=== PATIENT | female | born 1990 | race Caucasian/White ===

== ENCOUNTER 2022-05-19 14:46 | Outpatient (CLI) | payer OTHER, SELFPAY ==
--- NOTE | 2022-05-19 15:00 | CRLHL7_ITS ---
For Patients: As a result of the Cures Act, medical imaging exams and procedure reports are released immediately into your electronic medical record. You may view this report before your referring provider. If you have questions, please contact your health care provider. INDICATION: Twin . TECHNIQUE: Ultrasound OB pelvis transabdominal. Real-time hamlin-scale imaging of the fetus was performed as well as color Doppler and spectral Doppler analysis of the umbilical artery. COMPARISON: None. FINDINGS: Sonographic imaging demonstrates a twin intrauterine gestation. Fetus A: Regular cardiac rate of 145 beats per minute. Fetus has a breech orientation. The placenta lies maternal right without evidence of placenta previa. Amniotic fluid volume appears normal with the deepest pocket of 7 cm. The composite ultrasound gestational age is calculated at 24 weeks 5 days with an estimated sonographic due date of September 03, 2022. The weight is estimated at 724 gm, 85th percentile. The following biometric measurements were obtained: Biparietal diameter: 25 weeks 0 days Head circumference: 24 weeks 5 days Abdominal circumference: 25 weeks 0 days Femur length: 24 weeks 2 days Fetus B: Regular cardiac rate of 155 beats per minute. Fetus has a cephalic orientation. The placenta lies anterior without evidence of placenta previa. Amniotic fluid volume appears normal with the deepest pocket of 5 cm. The composite ultrasound gestational age is calculated at 24 weeks 6 days with an estimated sonographic due date of September 02, 2022. The weight is estimated at 745 gm, 90th percentile. The following biometric measurements were obtained: Biparietal diameter: 24 weeks 4 days Head circumference: 25 weeks 0 days Abdominal circumference: 25 weeks 2 days Femur length: 24 weeks 2 days IMPRESSION: 1. Viable twin intrauterine . 2. No abnormalities evident. Dictated by Srinivas Iverson MD @ 05/19/2022 5:59:52 PM (Electronically Signed)
== END 2022-05-19 14:47 | disposition home or self-care (01) ==
LOC: US 14:49
PROVIDERS: PCP Family Medicine; Visit Provider Obstetrics & Gynecology
DX: O30.002 Twin pregnancy, unspecified number of placenta and unspecified number of amniotic sacs, second trimester (principal); Z3A.24 24 weeks gestation of pregnancy
CPT/HCPCS: 76816

== ENCOUNTER 2022-05-30 09:52 | Outpatient (CLI) | payer OTHER, SELFPAY ==
--- NOTE | 2022-05-30 10:15 | CRLHL7_ITS ---
For Patients: As a result of the Century Cures Act, medical imaging exams and procedure reports are released immediately into your electronic medical record. You may view this report before your referring provider. If you have questions, please contact your health care provider. INDICATION: DI/DI TWIN GESTATION. CERVICAL LENGTH CHECK COMPARISON: 8 TECHNIQUE: Real-time grayscale imaging of the twins was performed. Transabdominal and transvaginal approach utilized. FINDINGS: Sonographic imaging demonstrates a living twin intrauterine gestation. Twin A demonstrates a regular cardiac rate of 147 beats per minute. Twin A has a vertex position. The placenta lies right anterior. Amniotic fluid volume appears normal and the largest fluid pocket measures 5.1 cm. Twin B demonstrates a regular cardiac rate of 150 beats per minute. Twin B has a vertex position. The placenta lies anterior. Amniotic fluid volume appears normal and the largest fluid pocket measures 4.7 cm. With transvaginal imaging, the cervix measures 1.8 cm and there is cervical funneling present measuring 1.6 cm. IMPRESSION: Cervical shortening measuring 1.8 cm with associated funneling measuring 1.6 cm. Dictated by Florian Whaley MD @ 05/30/2022 11:26:52 AM (Electronically Signed)
== END 2022-05-30 09:53 | disposition home or self-care (01) ==
LOC: US 09:53
PROVIDERS: PCP Family Medicine; Visit Provider Obstetrics & Gynecology
DX: O30.049 Twin pregnancy, dichorionic/diamniotic, unspecified trimester (principal)
CPT/HCPCS: 76815; 76817

== ENCOUNTER 2022-06-04 11:12 | Outpatient (CLI) | payer OTHER, SELFPAY ==
[2022-06-04 12:06] LABS: Fetal Fibronectin* Negative (Negative)
== END 2022-06-04 11:13 | disposition home or self-care (01) ==
LOC: NFLDREF 11:14
PROVIDERS: PCP Family Medicine; Visit Provider Obstetrics & Gynecology
DX: O30.042 Twin pregnancy, dichorionic/diamniotic, second trimester (principal); Z3A.26 26 weeks gestation of pregnancy; O34.32 Maternal care for cervical incompetence, second trimester
CPT/HCPCS: 84112

== ENCOUNTER 2022-06-18 09:34 | Outpatient (CLI) | payer OTHER, SELFPAY ==
--- NOTE | 2022-06-18 09:45 | CRLHL7_ITS ---
For Patients: As a result of the Century Cures Act, medical imaging exams and procedure reports are released immediately into your electronic medical record. You may view this report before your referring provider. If you have questions, please contact your health care provider. 3rd TRIMESTER TWIN GROWTH INDICATION: Third trimester scan, evaluate growth in a twin gestation. COMPARISON: 05/30/2022, 05/19/2022 TECHNIQUE: Real-time grayscale imaging of the twins was performed. FINDINGS: Sonographic imaging demonstrates a living twin intrauterine gestation. Twin A demonstrates a regular cardiac rate of 144 beats per minute. Twin A has a vertex position. The placenta lies right anterior. Amniotic fluid volume appears normal and the largest fluid pocket measures 4.2 cm. The estimated weight is 1215 gm which lies at the 51st percentile. The BPD greater than 97th percentile. HC 48th percentile. AC 41st percentile. FL 45th percentile. The HC/AC ratio measures 1.12 range (0.99-1.21). Twin B demonstrates a regular cardiac rate of 146 beats per minute. Twin B has a vertex position. The placenta lies anterior. Amniotic fluid volume appears normal and the largest fluid pocket measures 6.3 cm. The estimated weight is 1392 gm which lies at the 88th percentile. BPD 19th percentile. HC 26th percentile. Abdominal circumference 96th percentile. FL 56th percentile. The HC/AC ratio measures 0.99 range (1.00-1.21). IMPRESSION: With transvaginal measurement, the cervix is shortened and measures 1.6-1.7 cm. Funneling of the internal cervical os is also present measuring 8 millimeters. TWIN A: Sonographic gestational age 29 weeks 0 days and sonographic due date 09/03/2022. Sonographic age is 1 week ahead of the clinical age. Estimated weight 51st percentile. Abdominal circumference 41st percentile. BPD greater than 97th percentile. TWIN B: Sonographic gestational age 28 weeks 5 days and sonographic due date of 09/05/2022. Sonographic age is 5 days ahead of the clinical age. Estimated weight 88th percentile. Abdominal circumference 96th percentile. Dictated by Florian Whaley MD @ 06/18/2022 11:28:03 AM (Electronically Signed)
== END 2022-06-18 09:35 | disposition home or self-care (01) ==
LOC: US 09:35
PROVIDERS: PCP Family Medicine; Visit Provider Obstetrics & Gynecology
DX: O30.043 Twin pregnancy, dichorionic/diamniotic, third trimester (principal); Z3A.29 29 weeks gestation of pregnancy
CPT/HCPCS: 76816; 76817

== ENCOUNTER 2022-06-18 16:04 | Outpatient (CLI) | payer OTHER, SELFPAY ==
[2022-06-18 11:26] LABS: Alanine Aminotransferase* 16 U/L (4-35); Aspartate Amino Transferase* 36 U/L (12-35)
[2022-06-18 12:09] LABS: TSH With Reflex to FT4* < 0.015 uIU/mL (0.270-4.200)
[2022-06-18 13:33] LABS: Free T4 Free Thyroxine* 1.45 ng/dL (0.70-1.85)
[2022-06-19 17:20] LABS: Rapid Plasma Reagin (RPR) Non Reactive (Non Reactive)
== END 2022-06-18 16:05 | disposition home or self-care (01) ==
PROVIDERS: PCP Family Medicine; Visit Provider Obstetrics & Gynecology
DX: O30.043 Twin pregnancy, dichorionic/diamniotic, third trimester (principal); Z3A.28 28 weeks gestation of pregnancy
CPT/HCPCS: 84439; 84443; 84450; 84460; 86592

== ENCOUNTER 2022-06-19 11:25 | Outpatient (CLI) | payer OTHER, SELFPAY ==
[2022-06-19 12:24] LABS: Fetal Fibronectin* POSITIVE (Negative)
== END 2022-06-19 11:26 | disposition home or self-care (01) ==
LOC: NFLDREF 11:39
PROVIDERS: PCP Family Medicine; Visit Provider Obstetrics & Gynecology
DX: O30.043 Twin pregnancy, dichorionic/diamniotic, third trimester (principal); O47.00 False labor before 37 completed weeks of gestation, unspecified trimester; Z3A.28 28 weeks gestation of pregnancy
CPT/HCPCS: 84112

== ENCOUNTER 2022-06-25 07:06 | Outpatient (CLI) | payer OTHER, SELFPAY ==
--- NOTE | 2022-06-25 07:15 | CRLHL7_ITS ---
For Patients: As a result of the Century Cures Act, medical imaging exams and procedure reports are released immediately into your electronic medical record. You may view this report before your referring provider. If you have questions, please contact your health care provider. INDICATION: FALSE LABOR BEFORE 37 WKS COMPARISON: 06/18/2022 TECHNIQUE: Real time hamlin scale imaging of the twins was performed. FINDINGS: Sonographic imaging demonstrates a twin living intrauterine gestation. TWIN A: Fetus demonstrates a regular cardiac rate of 157 beats per minute. Fetus has a maternal right vertex position. The placenta lies right anterior. Amniotic fluid volume appears normal and there is a single deepest vertical pocket: 3.4 cm. Normal gross body movements, tone and respiratory activity. TWIN B: Fetus demonstrates a regular cardiac rate 147 beats per minute. Fetus has a maternal left vertex position. The placenta lies right anterior. Amniotic fluid appears normal and there is a single deepest pocket of 5.7 cm. Normal gross body movements and tone. Absent respiratory activity. IMPRESSION: TWIN A: Normal biophysical profile 8. TWIN B: Biophysical profile 6/8. Absent respiratory activity. Dictated by Florian Whaley MD @ 06/25/2022 10:41:49 AM (Electronically Signed)
== END 2022-06-25 07:07 | disposition home or self-care (01) ==
LOC: US 07:06
PROVIDERS: PCP Family Medicine; Visit Provider Obstetrics & Gynecology
DX: O30.043 Twin pregnancy, dichorionic/diamniotic, third trimester (principal); O47.00 False labor before 37 completed weeks of gestation, unspecified trimester; Z3A.29 29 weeks gestation of pregnancy
CPT/HCPCS: 76819; 84112

== ENCOUNTER 2022-07-03 07:19 | Outpatient (CLI) | payer OTHER, SELFPAY ==
--- NOTE | 2022-07-03 07:15 | CRLHL7_ITS ---
For Patients: As a result of the Century Cures Act, medical imaging exams and procedure reports are released immediately into your electronic medical record. You may view this report before your referring provider. If you have questions, please contact your health care provider. INDICATION: TWINS, FALSE LABOR BEFORE 37 WEEKS COMPARISON: 06/25/2022 TECHNIQUE: Real time hamlin scale imaging of the fetus was performed. Without non-stress testing. FINDINGS: Sonographic imaging demonstrates a twin living intrauterine gestation. TWIN A: Fetus demonstrates a regular cardiac rate of 131 beats per minute. Fetus has a maternal right vertex position. The amniotic fluid volume appears normal and there is a single deepest pocket measurement of 5.2 cm. The fetus was active and demonstrated normal breathing movements. There was normal flexion and extension of the trunk and extremities. TWIN B: Fetus demonstrates a regular cardiac rate of 139 beats per minute. Fetus has a maternal left vertex position. The amniotic fluid volume appears normal and there is a single deepest pocket measurement of 5.6 cm. The fetus was active without normal breathing movements. There was normal flexion and extension of the trunk and extremities. IMPRESSION: TWIN A: Normal biophysical profile score of 8 out of 8. TWIN B: Biophysical profile 6/8 without normal breathing movements. Dictated by Florian Whaley MD @ 07/03/2022 10:37:30 AM (Electronically Signed)
== END 2022-07-03 07:20 | disposition home or self-care (01) ==
PROVIDERS: PCP Family Medicine; Visit Provider Obstetrics & Gynecology
DX: O47.00 False labor before 37 completed weeks of gestation, unspecified trimester (principal); O30.049 Twin pregnancy, dichorionic/diamniotic, unspecified trimester
CPT/HCPCS: 76819

== ENCOUNTER 2022-07-10 07:06 | Outpatient (CLI) | payer OTHER, SELFPAY ==
--- NOTE | 2022-07-10 07:15 | CRLHL7_ITS ---
For Patients: As a result of the Century Cures Act, medical imaging exams and procedure reports are released immediately into your electronic medical record. You may view this report before your referring provider. If you have questions, please contact your health care provider. INDICATION: FALSE LABOR BEFORE 37 WEEKS COMPARISON: 07/03/2022 TECHNIQUE: Real time hamlin scale imaging of the twins was performed. Without non-stress testing. FINDINGS: Sonographic imaging demonstrates a twin living intrauterine gestation. TWIN A: Fetus demonstrates a regular cardiac rate of 152 beats per minute. Fetus has a right vertex position. The amniotic fluid volume appears normal and there is a single deepest pocket measurement of 2.9 cm. The fetus was active and demonstrated normal breathing movements. There was normal flexion and extension of the trunk and extremities. TWIN B: Fetus demonstrates a regular cardiac rate of 143 beats per minute. Fetus has a left vertex position. The amniotic fluid volume appears normal and there is a single deepest pocket measurement of 4.0 cm. The fetus was active and demonstrated normal breathing movements. There was normal flexion and extension of the trunk and extremities. IMPRESSION: TWIN A: Normal biophysical profile score of 8 out of 8. TWIN B: Normal biophysical profile score of 8 out of 8. Dictated by Florian Whaley MD @ 07/10/2022 11:56:02 AM (Electronically Signed)
== END 2022-07-10 07:07 | disposition home or self-care (01) ==
PROVIDERS: PCP Family Medicine; Visit Provider Obstetrics & Gynecology
DX: O47.03 False labor before 37 completed weeks of gestation, third trimester (principal); O30.043 Twin pregnancy, dichorionic/diamniotic, third trimester; Z3A.31 31 weeks gestation of pregnancy
CPT/HCPCS: 76819

== ENCOUNTER 2022-07-14 14:06 | Inpatient (IN) | payer OTHER, SELFPAY ==
[2022-07-14] VITALS (43 sets, daily range): BP systolic 110–176; BP diastolic 56–96; PULSE 87–109; RESP 16–18; TEMP 36.5–36.9; O2SAT 97–100
--- NOTE | 2022-07-14 | CRLHL7_ITS ---
For Patients: As a result of the Century Cures Act, medical imaging exams and procedure reports are released immediately into your electronic medical record. You may view this report before your referring provider. If you have questions, please contact your health care provider. INDICATION: Emergent , no towel counts. COMPARISON: None. TECHNIQUE: Abdomen 2 view. FINDINGS: Suboptimal radiographic technique limits evaluation. The upper abdomen and lateral aspect of the left abdomen are not included in the field of view. Large rectangular opacity projected over the right lateral abdomen/pelvis is likely external to the patient. Catheter over the mid abdomen. No radiopaque foreign body identified. No dilated bowel loops are seen. The bones are unremarkable. IMPRESSION: No radiopaque foreign body identified. Dictated by Iona Salazar MD @ 07/14/2022 4:01:12 PM (Electronically Signed)
[2022-07-14 11:27] LABS: Basophils Absolute Auto 0.05 K/uL (0.00-0.30); Basophils Percent Auto 0.6 % (0.0-3.0); Eosinophils Percent Auto 1.2 % (0.0-7.0); Hemoglobin* 10.3 gm/dL (12.0-16.0); Immature Granulocytes Abs Auto 0.02 K/uL (0.00-0.30); Lymphocytes Percent Auto 11.7 % (20-44); Mean Corpuscular HGB Conc 33 gm/dL (32-36); Mean Corpuscular Hemoglobin 28 pg (26-34); Mean Corpuscular Volume 85 fL (80-100); Monocytes Percent Auto 9.9 % (0.0-11.0); Neutrophils Percent Auto 76.4 % (42.0-72.0); Platelet Count* 262 K/uL (140-440); Red Blood Count 3.66 m/uL (4.00-5.20); White Blood Count* 8.62 K/uL (4.50-11.00)
[2022-07-14 11:36] LABS: Slide Review Reflex No
[2022-07-14] MEDS: LACTATED RINGERS 1000 ML 1,000 ML IV (12:28)
--- NOTE | 2022-07-14 12:37 | PM.OBHPAP1 ---
OB - H&P; HPI Antepartum History of Present Illness Chief complaint: Maternity Narrative: Fatmata Carmona is a 32 year old female Meds Home Medications and Allergies Home Medications Medication Instructions Recorded Confirmed Type PNV no.151-iron 27 mg-folic 800 cap PO 04/25/22 07/10/22 History mcg-omega3 260 yg-tae-hls-fish capsule ( Multi-DHA (with vitamin K)) aspirin 81 mg tablet,delayed mg PO DAILY 04/25/22 07/10/22 History release fluoxetine 40 mg capsule 40 mg PO DAILY 04/25/22 07/10/22 History loratadine 10 mg tablet 10 mg PO DAILY 04/25/22 07/10/22 History omeprazole 20 mg capsule,delayed 20 mg PO QDAY 07/10/22 07/10/22 History release Allergies Allergy/AdvReac Type Severity Reaction Status Date / Time Penicillin Allergy Mild Rash Uncoded 07/10/22 08:16 Sulfa Antibiotics Allergy Mild Rash and Uncoded 07/10/22 08:16 diarrhea as baby OB - H&P: Exam Physical Exam: Vital signs: Temp Pulse Resp BP Pulse Ox 98.4 F 87 18 139/91 H 98 07/14/22 11:05 07/14/22 12:09 07/14/22 11:05 07/14/22 12:09 07/14/22 11:55 OB - Results Labs Labs: Short CBC 07/14/22 Range/Units 11:20 WBC 8.62 (4.50-11.00) K/uL Hgb 10.3 L (12.0-16.0) gm/dL Hct 31.0 L (33.0-51.0) % Plt Count 262 (140-440) K/uL
[2022-07-14] MEDS: BETAMETHASONE SOD PHOS/ACETATE 6 MG/ML ML 12 MG IM (12:56)
--- NOTE | 2022-07-14 12:56 | P.OBHP_ITS ---
OB - H&P; HPI Antepartum History of Present Illness Time Seen by Provider: 13:17 Date Seen: 07/14/22 Chief complaint: Maternity Narrative: Fatmata Carmona is a 32 year old female at 31w5d here for scant vaginal bleeding and contractions. She denies any trauma or intercourse. She's been on pelvic rest since first trimester. Denies LOF, malodorous vaginal discharge, or increased vaginal bleeding. Denies fever, chills, SOB, JORGENSEN, visual changes, RUQ pain or rapidly increasing edema. She was negative ROMx4 on evaluation. She continues to have increased contractions: initially Q15-30 minutes and now Q5 minutes. She endorses increased in contraction strenght as well. Review of Systems Narrative: REVIEW OF SYSTEMS: GENERAL: Negative SKIN: Negative NECK: Negative RESPIRATORY: Negative BREAST: Negative CARDIOVASCULAR: Negative GASTROINTESTINAL: Negative GENITOURINARY: +scant vagina bleeding, +ctx MUSCULOSKELETAL: Negative NEUROLOGICAL: Negative PSYCHIATRIC: Negative ENDOCRINE: Negative HEMATOLOGIC: Negative Meds Home Medications and Allergies Home Medications Medication Instructions Recorded Confirmed Type PNV no.151-iron 27 mg-folic 800 cap PO 04/25/22 07/10/22 History mcg-omega3 260 cw-zgp-tkq-fish capsule ( Multi-DHA (with vitamin K)) aspirin 81 mg tablet,delayed mg PO DAILY 04/25/22 07/10/22 History release fluoxetine 40 mg capsule 40 mg PO DAILY 04/25/22 07/10/22 History loratadine 10 mg tablet 10 mg PO DAILY 04/25/22 07/10/22 History omeprazole 20 mg capsule,delayed 20 mg PO QDAY 07/10/22 07/10/22 History release Allergies Allergy/AdvReac Type Severity Reaction Status Date / Time Penicillin Allergy Mild Rash Uncoded 07/10/22 08:16 Sulfa Antibiotics Allergy Mild Rash and Uncoded 07/10/22 08:16 diarrhea as baby OB - H&P: Exam Physical Exam: Vital signs: Temp Pulse Resp BP Pulse Ox 98.4 F 87 18 139/91 H 100 07/14/22 11:05 07/14/22 12:09 07/14/22 11:05 07/14/22 12:09 07/14/22 12:52 Narrative: Physical exam: General: No acute distress Psych: Alert and oriented x3, full affect HEENT: Normocephalic, atraumatic, Heart: Regular rate and rhythm, no murmur rub or gallop Lungs: Clear to auscultation bilaterally Abdomen: Gravid. Soft, no tenderness, rebound, or guarding, no masses, no hepatosplenomegaly, no hernias Lower extremities: 2+ edema bilaterally Pelvic exam: Mons normal, clitoris normal, urethral meatus normal. Labia minora and majora normal in appearance bilaterally. Perineum and anus normal appearance. Vaginal introitus normal appearance. Vagina pink and well rugated with scant white discharge. Negative cought test, negative pool, negative ferning Cervix visually dilated. SVE /ball --> /ball. OB - Results Labs Labs: Short CBC 07/14/22 Range/Units 11:20 WBC 8.62 (4.50-11.00) K/uL Hgb 10.3 L (12.0-16.0) gm/dL Hct 31.0 L (33.0-51.0) % Plt Count 262 (140-440) K/uL OB - A/P Antepartum Assessment and Plan (1) labor: Status: Acute Plan labor - Pt in labor with aminata twins - Scant vaginal bleeding from cervical change. No active bleeding - Rescue BMZ#1 administered - Mag sulfate for neuroprotection - 4 grams loading dose Plan: Reached out to [facility] and they were unable to accept her as their NICU is closed today. Transfer to [facility]- accepted. Report given. well being Fetus A - upon arrival, tachy to 180s with moderate variability and intermittent d/c --. LR bolus given and NST became reactive and reassuring with HR in 150s - Vertex on BSUS Fetus B - Reactive and reassuring in 140s - Vertex on BSUS Pt stable and appropriate for transfer.
[2022-07-14] MEDS: fentaNYL 100 MCG/2 ML inj 25 MCG IVP (13:48)
[2022-07-14 14:12] LABS: Amnisure Rom* POSITIVE
[2022-07-14] MEDS: ROPIVACAINE 0.2% 100 ml 100 ML 12 MG EPIDURAL (14:35)
[2022-07-14 14:40] LABS: Albumin* 3.4 g/dL (3.3-5.0); Chloride* 108 mmol/L (96-114); Sodium* 134 mmol/L (135-149)
[2022-07-14 14:41] LABS: INR 0.85 (0.91-1.10); Prothrombin Time 12.1 Seconds
[2022-07-14 14:42] LABS: Creatinine* 0.5 mg/dL (0.5-1.5); Estimated Glomerular Filt Rate 129 ml/min; Fibrinogen* 587 mg/dL (200-450); Partial Thromboplastin Time* 25 Seconds (23-33)
[2022-07-14 14:43] LABS: Alanine Aminotransferase* 30 U/L (4-35); Alkaline Phosphatase* 200 U/L (40-150); Aspartate Amino Transferase* 32 U/L (12-35); Bilirubin Total* 0.4 mg/dL (0.1-1.5); Blood Urea Nitrogen* 4 mg/dL (5-24); Carbon Dioxide* 12 mmol/L (20-32); Glucose* 104 mg/dL (60-115); Total Protein* 6.4 g/dL (6.0-8.3)
[2022-07-14 14:44] LABS: Calcium* 8.8 mg/dL (8.4-10.6)
[2022-07-14 14:50] LABS: Potassium* 2.6 mmol/L (3.6-5.1)
--- NOTE | 2022-07-14 14:59 | PM.ANBPRC ---
[facility] Medical History (Updated 07/14/22 @ 13:29 by Linda Gramajo MD) Dichorionic diamniotic twin gestation History of abnormal cervical Papanicolaou smear (2013) History of migraine History of pre-eclampsia Pain in symphysis pubis during Family History (Updated 05/19/22 @ 16:45 by Shannon Hernandez MD) Father High blood pressure Mother Hypothyroidism Heart disease Maternal Grandfather Hypothyroidism Maternal Grandmother Hypothyroidism Aunt Hypothyroidism Paternal Grandfather Heart disease High blood pressure Maternal Grandmother Parkinson disease Social History (Updated 05/19/22 @ 16:46 by Shannon Hernandez MD) 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[employer], non-smoker, no EtOH Lives with , Mark, son and step son Highest level of school completed/degree received: Bachelor's degree Smoking Status: Never smoker Meds Home Medications and Allergies Home Medications Medication Instructions Recorded Confirmed Type PNV no.151-iron 27 mg-folic 800 cap PO 04/25/22 07/10/22 History mcg-omega3 260 vp-nvw-mrp-fish capsule ( Multi-DHA (with vitamin K)) aspirin 81 mg tablet,delayed mg PO DAILY 04/25/22 07/10/22 History release fluoxetine 40 mg capsule 40 mg PO DAILY 04/25/22 07/10/22 History loratadine 10 mg tablet 10 mg PO DAILY 04/25/22 07/10/22 History omeprazole 20 mg capsule,delayed 20 mg PO QDAY 07/10/22 07/10/22 History release Allergies Allergy/AdvReac Type Severity Reaction Status Date / Time Penicillin Allergy Mild Rash Uncoded 07/10/22 08:16 Sulfa Antibiotics Allergy Mild Rash and Uncoded 07/10/22 08:16 diarrhea as baby Results Labs Labs: Laboratory Results - last 24 hr 07/14/22 07/14/22 07/14/22 11:20 11:34 14:18 WBC 8.62 RBC 3.66 L Hgb 10.3 L Hct 31.0 L MCV 85 MCH 28 MCHC 33 RDW Coeff of Michael 16.0 H Plt Count 262 Neut % (Auto) 76.4 H Lymph % (Auto) 11.7 L [place] % (Auto) 9.9 Eos % (Auto) 1.2 Baso % (Auto) 0.6 Neut # (Auto) 6.60 Lymph # (Auto) 1.00 [place] # (Auto) 0.90 Eos # (Auto) 0.10 Baso # (Auto) 0.05 Abs Immat Gran (auto) 0.02 INR 0.85 L APTT 25 Fibrinogen 587 H Sodium Potassium Chloride Carbon Dioxide BUN Creatinine Estimated GFR Glucose Calcium Total Bilirubin AST ALT Alkaline Phosphatase Total Protein Albumin Membrane Rupture POSITIVE 07/14/22 14:18 WBC RBC Hgb Hct MCV MCH MCHC RDW Coeff of Michael Plt Count Neut % (Auto) Lymph % (Auto) [place] % (Auto) Eos % (Auto) Baso % (Auto) Neut # (Auto) Lymph # (Auto) [place] # (Auto) Eos # (Auto) Baso # (Auto) Abs Immat Gran (auto) INR APTT Fibrinogen Sodium 134 L Potassium 2.6 L* Chloride 108 Carbon Dioxide 12 L BUN 4 L Creatinine 0.5 Estimated GFR 129 Glucose 104 Calcium 8.8 Total Bilirubin 0.4 AST 32 ALT 30 Alkaline Phosphatase 200 H Total Protein 6.4 Albumin 3.4 Membrane Rupture Vital Signs Vital Signs: Last Vital Signs Temp 98.4 F 07/14/22 11:05 Pulse 87 07/14/22 12:09 Resp 18 07/14/22 11:05 BP 139/91 H 07/14/22 12:09 Pulse Ox 99 07/14/22 13:22 Anesthesia Procedures Epidural Insertion Patient Location: OR Start Time: 14:00 Start Date: 07/14/22 Reason for Block: procedure for pain Patient Position: sitting Performed By: Jp Benavidez Preanesthetic Checklist: IV checked, risks and benefits discussed, monitors and equipment checked, pre-op evaluation and anesthesia consent Prep: chlorhexidine gluconate Monitoring: blood pressure monitoring, continuous pulse oximetry and heart rate Approach: midline Vertebral Space: lumbar (1-5) Epidural Technique: ESTELLA saline Needle Type: Tuohy needle Injection Technique: continuous catheter Needle gauge: 17 Needle Length (cm): 10 cm Needle Insertion Depth (cm): 7 Catheter Gauge: 19 Catheter Type: multi-orifice Catheter at skin depth (cm): 4 Test Dose Result: negative and lidocaine 1.5% with epinephrine 1 to 200,000
[2022-07-14 15:10] LABS: SARS PCR* Negative SARS-CoV-2 (Negative)
[2022-07-14 15:21] LABS: Albumin* 3.4 g/dL (3.3-5.0)
[2022-07-14 15:24] LABS: Alanine Aminotransferase* 28 U/L (4-35); Alkaline Phosphatase* 190 U/L (40-150); Aspartate Amino Transferase* 33 U/L (12-35); Bilirubin Direct* 0.3 mg/dL (0.0-0.5); Bilirubin Total* 0.4 mg/dL (0.1-1.5); Total Protein* 6.4 g/dL (6.0-8.3)
--- NOTE | 2022-07-14 15:32 | PM.OBPRCCS ---
Procedure Pre-op/Post-op diagnoses: Pre-Op/Post-Op Diagnoses Operation Date: 07/14/22 14:15 <No data on this case meets the specified criteria> Procedure Done: Global Procedure Details: Procedures Operation Date: 07/14/22 14:15 Actual Procedure Side Surgeon p Section Twins Linda Gramajo MD Expanded Function Dental Assistant: Missy Mendez Estimated blood loss (mL): 341 Anesthesia type: Spinal Complications: Preoperative diagnosis: 1. 32-year-old 3 para 1011 at and 31w5d admitted for a labor. 2. Emergency section due to deceleration of fetus B Patient was about to be transferred but became extremely uncomfortable due to increasing contractions. She was checked and noted to be 8/90/-1. Decision was made to go to the OR for delivery. Her labor progress rapidly and she was complete on arrival to OR. After spinal was placed, Fetus B noted to have prolonged deceleration to 80s for 5 minutes. Discussed with patient that we need to do an emergency c/s. Risks/benefits and alternative were discussed and verbal consent obtained. Patient verbalized understand and desires to proceed with emergency c/s. Postoperative diagnosis: Same Procedure: Primary low-transverse section. Anesthesia: Spinal Surgeon: Linda Gramajo MD Expanded Function Dental Assistant: Missy Mendez MD Estimated blood loss: 341 mL Specimen: Placenta x2 to pathology Findings: Two live male infants was delivered from the cephalic position x 2 at 1454 and 1455. Apgars for fetus A 3 at 1 min and 6 at 5 min respectively. Infant weight: 3lb 15oz. Nuchal cord(s): No. Apgars for fetus B at 4 at 1 min and 6 at 5 min. The placentas were delivered spontaneouslyx2. Amniotic fluidx2: Clear. Normal uterus, fallopian tubes and ovaries were noted. Procedure: Fatmata was taken to the OR where spinal anesthetic was found be adequate. A Minor catheter was placed. The patient was then placed in the dorsal supine position with a leftward tilt. She was then prepped with iodine per emergency protocol. A Pfannenstiel skin incision was made and carried through sharply to the underlying layer of fascia. Fascia was incised in the midline and this incision carried laterally bluntly with digits. The rectus muscles were in the midline. The peritoneum was entered bluntly. This opening was extended bluntly. A bladder blade retractor was placed. A bladder flap was not created. Uterus was incised in a low transverse manner in the midline. This incision carried laterally with blunt pressure on the inferior and superior aspects of the uterine incision. The amniotic sac was ruptured after fetus A head was move towards hysterotomy. The 's head and body was delivered atraumatically. The same steps were repeated for fetus B. Head and body were delivered atraumatically. The infants were shown to the patient and her support person, then handed to waiting pediatric staff. The placentas was delivered spontaneously. The uterus was cleared of clots and debris. The uterine incision was reapproximated with the uterus in vivo. The 1st layer using 0-Vicryl in a running, locked manner. The 2nd layer using 0-Vicryl in a running, vertical, imbricating layer by Dr. Missy Mendez. Additional sutures needed for hemostasis: no. Excellent hemostasis was verified. The rectus muscles were then closely inspected to verify hemostasis. Hemostasis was obtained with bipolar cautery. The fascia was then reapproximated using 0-Vicryl in a running manner. The subcutaneous tissue was then irrigated with saline and hemostasis obtained with bipolar cautery. The subcutaneous tissue was reapproximated using 3-0 chromic gut in a running manner. The skin was reapproximated using 3-0 Monocryl in a running subcuticular manner. LiquiBan skin adhesive and a Methalex silver dressing were applied. The patient tolerated this procedure well. Sponge, lap and instrument counts were correct x2 active to the procedure. Patient was taken to the recovery area in stable condition. OB Delivery Proc Additional Procedures Tubal Ligation at the time of : No Other: No
--- NOTE | 2022-07-14 15:58 | P.NB_ITS ---
Nerve Block Nerve Block Time Seen by Provider: 15:30 Type of block requested by surgeon for post-operative analgesia: TAP Side: bilateral Time out performed: Yes Verification of patient name: Yes Verification of date of : Yes Site marking: site marked Name of person performing procedure: Cholo Continuous monitoring Was continuous monitoring of O2 sat, B/P, awake overnight monitor, recorded every 15 minutes?: Yes Procedure Checklist: sterile prep, needles and gloves Ultrasound guided. Images saved: Yes Medications given in 5ml increments after negative aspiration: Marcaine %: 0.25 mL: 30 Needle gauge: 20 and Exparel mL: 10 Patient tolerated procedure well: Yes Additional comments: Needle noted adjacent to nerve Block Charges Block Charge (with Pro Fee): TAP Bilateral Use of Ultrasound Machine for Block: Yes- US Guidance/pain block
--- NOTE | 2022-07-14 16:03 | W.ANESCHARGE ---
Anesthesia Charges Start Date/Time Anesthesia Start Date: 07/14/22 Anesthesia Start Time: 14:40 Stop Date/Time Anesthesia Stop Date: 07/14/22 Anesthesia Stop Time: 15:19 Summary Emergency: Yes
--- NOTE | 2022-07-14 16:07 | W.ANESCHARGE ---
Anesthesia Charges Start Date/Time Anesthesia Start Date: 07/14/22 Anesthesia Start Time: 14:40 Stop Date/Time Anesthesia Stop Date: 07/14/22 Anesthesia Stop Time: 15:19 Summary Emergency: Yes
[2022-07-14] MEDS: ACETAMINOPHEN 500 MG TABLET 1000 MG PO (16:57)
[2022-07-14 17:21] LABS: Blood Urea Nitrogen* 3 mg/dL (5-24); Creatinine* 0.6 mg/dL (0.5-1.5); Estimated Glomerular Filt Rate 123 ml/min
[2022-07-14] MEDS: OXYTOCIN 30 unit/500 ML in NS 30 UNIT/500 ML BAG 300 UNIT IVPB (18:27)
[2022-07-14] MEDS: miSOPROStoL 800 MCG/4 TABLET PR (18:29)
--- NOTE | 2022-07-14 18:31 | PM.OBPRCCS ---
Procedure Pre-op/Post-op diagnoses: Pre-Op/Post-Op Diagnoses Operation Date: 07/14/22 14:15 <No data on this case meets the specified criteria> Procedure Done: Global Procedure Details: Procedures Operation Date: 07/14/22 14:15 Actual Procedure Side Surgeon p Section Twins Linda Gramajo MD Commercial [employer] Assistant: Missy Mendez Estimated blood loss (mL): 341 Disposition: PACU Anesthesia type: Spinal Complications: None Narrative: Preoperative diagnosis: 1. 32-year-old 3 para 1001 at 31 weeks 5 days weeks admitted for labor. section. 2. Emergency section due to decel of twin B down to 80s for 5 mintues. Postoperative diagnosis: Same Procedure: Primary low-transverse section. tubal ligation: Modified Roosevelt technique Anesthesia: Spinal Surgeon: Linda Gramajo MD Commercial Loan Assistant: Missy Mendez MD Estimated blood loss: 341 mL Specimen: Placenta A and Placenta B Findings: two live male infants were delivered from the vertex position at 14 50 and 1451. Apgars (TWIN A) were 6 at 1 min and 8 at 5 min respectively. Infant weight: []. Nuchal cord(s): [yes/no]. The placenta was delivered [spontaneously/manually] and complete at [] [am/pm]. Amniotic fluid: Clear. Normal uterus, fallopian tubes and ovaries were noted. Other findings: []s. Procedure: [] was taken to the OR where spinal anesthetic was found be adequate. A Minor catheter was placed. The patient was then placed in the dorsal supine position with a leftward tilt. She was then prepped and draped in a normal sterile manner. A Pfannenstiel skin incision was made and carried through sharply to the underlying layer of fascia. Fascia was incised in the midline and this incision carried laterally with Rachel scissors. The superior aspect of fascial incision was grasped with Anna clamps, tented up, and the rectus muscles dissected off with a combination of blunt and sharp dissection. The inferior aspect of the fascial incision was grasped with Anna clamps, tented up and again the rectus muscles dissected off with a combination of blunt and sharp dissection. The rectus muscles were in the midline. The peritoneum was entered bluntly. This opening was extended bluntly. An Daniel-O self-retaining retractor was placed. A bladder flap [was/was not] created. Uterus was incised in a low transverse manner in the midline. This incision carried laterally with blunt pressure on the inferior and superior aspects of the uterine incision. The amniotic sac was ruptured. The infant's head and body was delivered atraumatically. The infant was shown to the patient and her support person, then handed to waiting [pediatric/nursing] staff. The placenta was delivered spontaneously. The uterus was cleared of clots and debris. The uterine incision was reapproximated with the uterus in vivo. The 1st layer using 0-Vicryl in a running, locked manner. The 2nd layer using 0-Monocryl in a running, vertical, imbricating layer. Additional sutures needed for hemostasis: [yes/no] Excellent hemostasis was verified. Attention was turned to performing the tubal ligation:. Patient verified verbally that she desired to have her tubes tied. The uterus was exterior eyes and the left fallopian tube identified. The tube was then grasped with a Ihsan clamp approximately 3 cm from the isthmic portion of the tube. Bipolar cautery was used to incise the mesosalpinx directly beneath the Ihsan clamp. Two sutures of 2 0 chromic were then passed through this opening. The fallopian tube was then ligated with the sutures on both sides of the Ihsan clamp. The intervening portion of tube between the 2 sutures was then removed using Metzenbaum scissors. Hemostasis was obtained with bipolar cautery. The right fallopian tube was then ligated in a similar manner. Excellent hemostasis verified and the uterus returned to the pelvis. The Daniel retractor was removed. The rectus muscles were reapproximated: [yes/no]. The rectus muscles were then closely inspected to verify hemostasis. Hemostasis was obtained with bipolar cautery. The fascia was then reapproximated using 0-Maxon loop in a running manner. The subcutaneous tissue was then irrigated with saline and hemostasis obtained with bipolar cautery. The subcutaneous tissue was reapproximated using 3-0 plain gut in a running manner. The skin was reapproximated using 4-0 Monocryl in a running subcuticular manner. LiquiBan skin adhesive and a Methalex dressing were applied. The patient tolerated this procedure well. Sponge, lap and instrument counts were correct x2 active to the procedure. Patient was taken to the recovery area in stable condition.
[2022-07-14] MEDS: KETOROLAC 30 MG/ML inj IVP (21:49)
[2022-07-14] MEDS: SIMETHICONE 80 MG TAB.CHEW PO (21:52)
[2022-07-14] MEDS: hydrOXYzine pamoate 25 MG CAPSULE 50 MG PO (22:18)
[2022-07-14] MEDS: LIDOCAINE 2% (PF) 5 ML VIAL EPIDURAL (22:23)
[2022-07-15 00:53] VITALS: BP 144/92; PULSE 95; RESP 17; TEMP 37.1
[2022-07-15] MEDS: LORATADINE 10 MG TABLET PO ×2 (00:58→21:44)
[2022-07-15] MEDS: LEVOTHYROXINE 75 MCG TABLET PO ×2 (00:58→21:44)
[2022-07-15] MEDS: IBUPROFEN 600 MG TABLET PO ×2 (01:02→16:46)
[2022-07-15 03:42] VITALS: BP 145/85; PULSE 91; RESP 17; TEMP 37.1; O2SAT 97
[2022-07-15] MEDS: KETOROLAC 30 MG/ML inj IVP ×2 (03:44→09:48)
[2022-07-15] MEDS: SIMETHICONE 80 MG TAB.CHEW PO ×4 (05:20→21:40)
[2022-07-15] MEDS: ACETAMINOPHEN 500 MG TABLET 1000 MG PO ×3 (05:21→21:42)
[2022-07-15 07:26] LABS: Hemoglobin* 9.4 gm/dL (12.0-16.0)
[2022-07-15 08:17] LABS: Potassium* 3.2 mmol/L (3.6-5.1)
[2022-07-15 09:00] VITALS: BP 138/81; PULSE 80; RESP 16; TEMP 36.9; O2SAT 97
[2022-07-15] MEDS: POTASSIUM CHLORIDE 10 MEQ CAPSULE ER 40 MEQ PO (09:21)
[2022-07-15] MEDS: FERROUS SULFATE 325 MG TABLET PO (09:23)
[2022-07-15] MEDS: DOCUSATE SODIUM 100 MG CAPSULE PO (09:23)
--- NOTE | 2022-07-15 09:28 | P.OBPN_ITS ---
OB - PN: A/P Assessment and Plan (1) care and examination immediately after delivery: Status: Acute (2) Anemia due to acute blood loss: Status: Acute (3) Status post delivery: Status: Acute (4) Anxiety and depression: Status: Acute Plan day: 1 Plan: routine postop care Comments: , twin delivery Twins transferred to NICU after delivery. Parents are able to see infants on cameras. BP remains > 140/80's. Dr. Wallace recommended starting Labetalol BID 200 mg. Medication ordered to start this am. Will continue to monitor BP. Iron ordered for anemia, daily. Patient desires to pump and breastfeed. Encouraged her to start as soon as possible to help bring her milk in, the longer she delays the more difficult it may be. Anticipate discharge tomorrow. She may desire discharge tonight if pain is well controlled and BP's are managed with medication. OB - PN: Subj Subjective Date Seen: 07/15/22 Patient comments: no complaints, pain well controlled, incisional pain, tolerating diet and flatus present [place] infant status: NICU (Transfered to another hospital for NICU care) and transferred [place] feeding status: expressed and storing (Desires but has not pumped yet) Narrative: The patient is a 32 year old G 3 P 3 at 31 5/7 weeks gestation that was admitted to the Center on 07/14/22 for spontaneous labor. They attempted to transfer her for labor but she progressed quickly and was found to be 8 cm. She was brought to the OR for delivery for a emergent c/s was performed for non reassuring status of Baby B. She had an uncomplicated delivery. She delivered a two viable male infants. She has not yet pumped but does desire to pump and breastfeed. the patient has done well. She has ambulated independently, is voiding, and passing flatus. She has not had a bowel movement yet. Her blood pressure overnight and this morning have remained in the 140's/80's. OB - PN: Obj Exam Physical Exam: Vital signs: Temp Pulse Resp BP Pulse Ox O2 Del Method 98.8 F 91 17 145/85 H 97 07/15/22 03:42 07/15/22 03:42 07/15/22 03:42 07/15/22 03:42 07/15/22 03:42 07/15/22 03:42 Constitutional: Constitutional: no acute distress and cooperative Routine Respiratory Exam: Respiratory: Present CTA bilaterally Routine Cardiovascular Exam: Cardiovascular: Present RRR Routine Abdominal Exam: Abdominal: Present soft Fundus: Present firm (u/1) Routine Exam: Perineum Description: Normal Routine Extremities Exam: Extremities: Present full ROM and normal inspection Routine Psychiatric Exam: Psychiatric: Present normal affect and cooperative Urinary Catheter Management: Urethral: Cath placed during this visit: yes, but has since been removed by the nurse Reason for continuing: other continuation reason Insertion date: 07/14/22 Insertion time: 14:46 Removal date: 07/14/22 Removal time: 22:15 OB - PN: Obj Data Labs Labs: Laboratory Results - last 24 hr 07/14/22 07/14/22 07/14/22 11:20 11:20 11:34 WBC 8.62 RBC 3.66 L Hgb 10.3 L Hct 31.0 L MCV 85 MCH 28 MCHC 33 RDW Coeff of Michael 16.0 H Plt Count 262 Neut % (Auto) 76.4 H Lymph % (Auto) 11.7 L [place] % (Auto) 9.9 Eos % (Auto) 1.2 Baso % (Auto) 0.6 Neut # (Auto) 6.60 Lymph # (Auto) 1.00 [place] # (Auto) 0.90 Eos # (Auto) 0.10 Baso # (Auto) 0.05 Abs Immat Gran (auto) 0.02 INR APTT Fibrinogen Sodium Potassium Chloride Carbon Dioxide BUN Creatinine Estimated GFR Glucose Calcium Total Bilirubin Direct Bilirubin AST ALT Alkaline Phosphatase Total Protein Albumin Membrane Rupture POSITIVE SARS-CoV-2 (PCR) Blood Type A Positive Antibody Screen NEGATIVE 07/14/22 07/14/22 07/14/22 13:31 14:18 14:18 WBC RBC Hgb Hct MCV MCH MCHC RDW Coeff of Michael Plt Count Neut % (Auto) Lymph % (Auto) [place] % (Auto) Eos % (Auto) Baso % (Auto) Neut # (Auto) Lymph # (Auto) [place] # (Auto) Eos # (Auto) Baso # (Auto) Abs Immat Gran (auto) INR 0.85 L APTT 25 Fibrinogen 587 H Sodium 134 L Potassium 2.6 L* Chloride 108 Carbon Dioxide 12 L BUN 4 L Creatinine 0.5 Estimated GFR 129 Glucose 104 Calcium 8.8 Total Bilirubin 0.4 Direct Bilirubin AST 32 ALT 30 Alkaline Phosphatase 200 H Total Protein 6.4 Albumin 3.4 Membrane Rupture SARS-CoV-2 (PCR) Negative SARS-CoV-2 Blood Type Antibody Screen 07/14/22 07/14/22 07/15/22 14:18 14:18 07:04 WBC RBC Hgb 9.4 L Hct MCV MCH MCHC RDW Coeff of Michael Plt Count Neut % (Auto) Lymph % (Auto) [place] % (Auto) Eos % (Auto) Baso % (Auto) Neut # (Auto) Lymph # (Auto) [place] # (Auto) Eos # (Auto) Baso # (Auto) Abs Immat Gran (auto) INR APTT Fibrinogen Sodium Potassium Chloride Carbon Dioxide BUN 3 L Creatinine 0.6 Estimated GFR 123 Glucose Calcium Total Bilirubin 0.4 Direct Bilirubin 0.3 AST 33 ALT 28 Alkaline Phosphatase 190 H Total Protein 6.4 Albumin 3.4 Membrane Rupture SARS-CoV-2 (PCR) Blood Type Antibody Screen 07/15/22 07:04 WBC RBC Hgb Hct MCV MCH MCHC RDW Coeff of Michael Plt Count Neut % (Auto) Lymph % (Auto) [place] % (Auto) Eos % (Auto) Baso % (Auto) Neut # (Auto) Lymph # (Auto) [place] # (Auto) Eos # (Auto) Baso # (Auto) Abs Immat Gran (auto) INR APTT Fibrinogen Sodium Potassium 3.2 L Chloride Carbon Dioxide BUN Creatinine Estimated GFR Glucose Calcium Total Bilirubin Direct Bilirubin AST ALT Alkaline Phosphatase Total Protein Albumin Membrane Rupture SARS-CoV-2 (PCR) Blood Type Antibody Screen
[2022-07-15] MEDS: LABETALOL HCL 100 MG TABLET 200 MG PO ×2 (09:48→21:42)
[2022-07-15] MEDS: SODIUM CHLORIDE 0.9 % (FLUSH) 10 ML SYRINGE IVF (09:48)
[2022-07-15] MEDS: FLUOXETINE HCL 20 MG CAPSULE 40 MG PO (09:50)
[2022-07-15 13:00] VITALS: BP 133/78; PULSE 86; RESP 16; TEMP 36.7; O2SAT 98
[2022-07-15 13:03] LABS: Strep B DNA Probe NEGATIVE (Negative)
[2022-07-15 15:07] VITALS: BMI 44.6
[2022-07-15 16:32] VITALS: BP 127/76; PULSE 88; RESP 16; TEMP 36.8; O2SAT 98
[2022-07-15] MEDS: OXYCODONE 5 MG TABLET PO ×2 (16:46→21:40)
[2022-07-15 19:31] VITALS: BP 130/81; PULSE 95; RESP 16; TEMP 36.9
[2022-07-15] MEDS: hydrOXYzine pamoate 25 MG CAPSULE 50 MG PO (21:41)
[2022-07-16 02:30] VITALS: BP 143/79; PULSE 91; RESP 16; TEMP 36.9; O2SAT 97
[2022-07-16] MEDS: IBUPROFEN 600 MG TABLET PO (02:39)
--- NOTE | 2022-07-16 07:39 | PM.OBDSCS1 ---
DS: Providers Provider Time Seen by Provider: 07:39 Date Seen: 07/16/22 Date of admission: 07/14/22 14:06 Primary care physician: Florian Martin MD Admitting Clinician: Linda Gramajo MD Attending Physician on discharge: Maira Varma CNM Date of Discharge: 07/16/22 DS: Diagnosis Discharge Diagnosis (1) state: Status: Acute (2) Status post delivery: Status: Acute (3) Lactating mother: Status: Acute (4) Anemia due to acute blood loss: Status: Acute (5) Hypothyroidism: Status: Acute (6) Emma's thyroiditis: Status: Acute (7) Anxiety and depression: Status: Acute Exam Const: Vital Signs, click to edit/add: Vital Signs - 24 hr 07/15/22 16:32 07/15/22 09:00 07/15/22 13:00 Temperature 98.3 F 98.4 F 98.1 F Pulse Rate [Pulse Oximeter] 88 80 86 Respiratory Rate 16 16 16 Blood Pressure [Ri ght Arm] 127/76 138/81 133/78 Pulse Oximetry 98 97 98 Oxygen Delivery Me thod Room Air Room Air Room Air 07/15/22 19:31 07/16/22 02:30 Temperature 98.5 F 98.5 F Pulse Rate [Pulse Oximeter] 95 91 Respiratory Rate 16 16 Blood Pressure [Ri ght Arm] 130/81 143/79 H Pulse Oximetry 97 Oxygen Delivery Me thod Room Air Room Air Documenting provider has reviewed patient's vital signs: yes Common normals: no apparent distress, oriented x3, healthy appearing, alert and well nourished General appearance: cooperative, well kempt and well developed Orientation/consciousness: Yes awake, Yes oriented to person, Yes oriented to place and Yes oriented to time HENMT: Common normals: normocephalic and external nose normal Head and scalp: normocephalic Nose: external nose normal Eye: General eye: normal appearance of both eyes Neck & C-Spine: Common normals: full ROM and supple General: normal visual inspection Cervical spine: cervical ROM normal Chest: Common normals: inspection of chest normal and palpation of chest normal Chest: symmetrical chest wall rise Resp: Common normals: normal respiratory effort, no retractions, no use of accessory muscles and clear to auscultation bilaterally Effort & inspection: able to speak in complete sentences and symmetric chest movement Auscultation: clear to auscultation bilaterally Cardio: Common normals: regular rate and regular rhythm Rate: regular rate Rhythm: regular rhythm GI: Common normals: Normal to inspection, nondistended, normoactive bowel sounds present, soft to palpation and non-tender Inspection: normal to inspection and other (Incision well approximated, no bleeding or discharge. Dressing [dry]) Auscultation: normoactive bowel sounds Palpation: soft and tender : Uterus: 2/U, U/U and firm Lochia: moderate Uterus palpation: uterus nontender Back & Pelvis: Common normals: thoracic and lumbar spine normal to inspection Thoracic spine/upper back: normal to inspection and thoracic ROM normal Lumbar spine/lower back: normal to inspection and lumbar ROM normal Extremity: Common normals: full ROM General: normal exam except as noted and edema ([place], +1) Neuro: Common normals: oriented x3 Sensorium/orientation: awake, alert, oriented to person, oriented to place and oriented to time Speech: speech normal Psych: Common normals: mental status grossly normal, thought process normal and speech normal Appearance: grossly normal and well kempt Attitude: calm and engaged Activity/motor behavior: appropriate eye contact Speech: normal speech Thought process: normal thought process Thought content: normal thought content Attention/concentration: attention grossly intact Memory/cognition: memory grossly intact Insight: insight good Judgement: judgment good Skin: Common normals: no rashes or lesions noted General skin exam: no rashes or lesions noted DS: Data Data Completed and Pending Labs on day of discharge: Labs from last 24 hours 07/15/22 07/14/22 07:04 14:08 Potassium 3.2 L Group B Strep DNA NEGATIVE OB - DS: Summary Hospital Course Hospital Course: Fatmata is a 32 year old G 3 P 3 at 31 5/7 weeks gestation that was admitted to the Center on 07/14/22 for spontaneous labor. They attempted to transfer her for labor but she progressed quickly and was found to be 8 cm. She was brought to the OR for delivery for a emergent c/s was performed for non reassuring status of Baby B. She had an uncomplicated delivery. She delivered a two viable male infants. She has not yet pumped but does desire to pump and breastfeed. the patient has done well. She has ambulated independently, is voiding, passing flatus and has had a BM. Her blood pressure in the last 24 hours has been 127-143/76/81. She is on Labetalol BID 200 mg. and continue to monitor BP?per Dr. Wallace. Daily Iron for acute anemia r/t blood loss. Overall Fatmata is doing well, pain is well controlled with medication. Planning to go discharge this morning so she can [facility]. Peripartum Data Procedures: Procedures Operation Date: 07/14/22 14:15 Actual Procedure Side Surgeon p Section Twins Linda Gramajo MD complications: none Infant Gender: Male [facility] Plan[facility] Gender: Male [facility]ant [facility] Status at Discharge Functional status at discharge: independent ambulation Overall status at discharge: patient is progressing back to baseline Time Spent with Patient Time attestation: Total time spent providing and/or coordinating discharge services: Time spent: Less than 30 minutes Discharge Plan Discharge Disposition: Home, Self-Care Date of Admission: 07/14/22 14:06 Attending Provider on Discharge: Maira Varma Primary Care Provider: Florian Martin Condition: Stable Anticipated Discharge Date/Time: 07/16/22 07:56 Discharge Medications: New oxycodone 5 mg tablet 5 mg PO TID PRN (Reason: pain) Qty: 21 0RF ibuprofen 600 mg tablet 600 mg PO QID PRNQty: 30 0RF docusate sodium 100 mg tablet 100 mg PO BID PRNQty: 100 0RF labetalol 200 mg tablet 200 mg PO BID Qty: 120 0RF Continued hydroxyzine pamoate [Vistaril] 50 mg capsule 50 mg PO .qhs PRN (Reason: sleep) Qty: 30 0RF Rx Instructions: 1-2 caps at bedtime as needed for sleep. ferrous sulfate 324 mg (65 mg iron) tablet,delayed release (DR/EC) 324 mg PO QDAY Qty: 60 1RF levothyroxine 75 mcg capsule 75 mcg PO QDAY Qty: 90 2RF fluoxetine 40 mg capsule 40 mg PO DAILY Multi-DHA(with vit K) 27 mg iron-800 mcg-260 mg capsule 1 cap PO DAILY loratadine 10 mg tablet 10 mg PO DAILY omeprazole 20 mg capsule,delayed release(DR/EC) 20 mg PO QDAY Discontinued aspirin 81 mg tablet,delayed release (DR/EC) 81 mg PO DAILY Discharge Orders: Discharge Order (Routine); Ordered 07/16/22 Ordered By: Altagracia Pablo Patient Education: OB Over the Counter Medication Information, OB /Breast Feeding Activity Restrictions/Additional Instructions: 2-week visit: incision check, discuss feeding concerns, review control options and screen for anxiety/depression. 6-week visit for an annual exam. consultation services are available to all mothers and babies for the first year after delivery.? To make an appointment, please call [phone]. Activity Level: Activity as Tolerated Discharge Diet: Regular Follow Up Appointments: [facility]: [facility] Info Inst[facility] Discharge Comments: [id number]
[2022-07-16] MEDS: FLUOXETINE HCL 20 MG CAPSULE 40 MG PO (08:28)
[2022-07-16] MEDS: ACETAMINOPHEN 500 MG TABLET 1000 MG PO (08:28)
[2022-07-16] MEDS: SIMETHICONE 80 MG TAB.CHEW PO (08:28)
[2022-07-16] MEDS: OXYCODONE 5 MG TABLET PO (08:29)
[2022-07-16] MEDS: FERROUS SULFATE 325 MG TABLET PO (08:29)
[2022-07-16] MEDS: DOCUSATE SODIUM 100 MG CAPSULE PO (08:29)
[2022-07-16] MEDS: LABETALOL HCL 100 MG TABLET 200 MG PO (08:29)
[2022-07-16 09:00] VITALS: BP 124/76; PULSE 95; RESP 16; TEMP 36.8; O2SAT 99
== END 2022-07-16 13:25 | disposition home or self-care (01) | DRG 787 ==
LOC: OB OUT 14:07 → OB 14:07
PROVIDERS: Advanced Practice Midwife; Obstetrics & Gynecology; Admitting Provider Obstetrics & Gynecology; PCP Family Medicine; Visit Provider Obstetrics & Gynecology
PROC: 10D00Z1 Extraction of Products of Conception, Low, Open Approach (ICD-10-PCS; CPT 59514; principal; 2022-07-14 14:00)
DX: O60.14X1 Preterm labor third trimester with preterm delivery third trimester, fetus 1 (principal); D62 Acute posthemorrhagic anemia; Z37.2 Twins, both liveborn; O60.14X2 Preterm labor third trimester with preterm delivery third trimester, fetus 2; O30.043 Twin pregnancy, dichorionic/diamniotic, third trimester; O76 Abnormality in fetal heart rate and rhythm complicating labor and delivery; O90.81 Anemia of the puerperium; O99.344 Other mental disorders complicating childbirth; F41.9 Anxiety disorder, unspecified; F32.A Depression, unspecified; O99.284 Endocrine, nutritional and metabolic diseases complicating childbirth; E06.3 Autoimmune thyroiditis; Z3A.31 31 weeks gestation of pregnancy
CPT/HCPCS: 01967; 01968; 36415; 64488; 74018; 76942; 80053; 80076; 82565; 84112; 84132; 84520; 85018; 85025; 85384; 85610; 85730; 86850; 86900; 86901; 87081; 87635; 87653; 88307; 99140; A9270; C9290; J0702; J1885; J2590; J2795; J3010; J3370; J3475; J3490; J7120

== ENCOUNTER 2022-08-29 15:31 | Outpatient (CLI) | payer OTHER, SELFPAY ==
[2022-08-29 18:45] LABS: TSH With Reflex to FT4* 0.437 uIU/mL (0.270-4.200)
== END 2022-08-29 15:32 | disposition home or self-care (01) ==
PROVIDERS: PCP Family Medicine; Visit Provider Obstetrics & Gynecology
DX: E03.9 Hypothyroidism, unspecified (principal); D62 Acute posthemorrhagic anemia; Z39.2 Encounter for routine postpartum follow-up
CPT/HCPCS: 84443

== ENCOUNTER 2022-11-11 14:26 | Outpatient (CLI) | payer OTHER, SELFPAY ==
[2022-11-11 17:52] LABS: Albumin* 4.4 g/dL (3.3-5.0); Chloride* 106 mmol/L (96-114); Sodium* 140 mmol/L (135-149)
[2022-11-11 17:53] LABS: Potassium* 5.1 mmol/L (3.6-5.1)
[2022-11-11 17:55] LABS: Alkaline Phosphatase* 92 U/L (40-150); Aspartate Amino Transferase* 52 U/L (12-35); Bilirubin Total* 0.4 mg/dL (0.1-1.5); Blood Urea Nitrogen* 22 mg/dL (5-24); Carbon Dioxide* 28 mmol/L (20-32); Creatinine* 0.7 mg/dL (0.5-1.5); Estimated Glomerular Filt Rate 119 ml/min; Total Protein* 7.1 g/dL (6.0-8.3)
[2022-11-11 17:56] LABS: Alanine Aminotransferase* 88 U/L (4-35); Calcium* 9.5 mg/dL (8.4-10.6); Glucose* 95 mg/dL (60-115)
[2022-11-11 18:13] LABS: Vitamin D 25 Hydroxy* 46 ng/mL (30-80)
[2022-11-11 18:27] LABS: TSH With Reflex to FT4* 0.906 uIU/mL (0.270-4.200)
== END 2022-11-11 14:27 | disposition home or self-care (01) ==
PROVIDERS: PCP Family Medicine; Visit Provider Family Medicine
DX: Z00.00 Encounter for general adult medical examination without abnormal findings (principal); E55.9 Vitamin D deficiency, unspecified; E03.9 Hypothyroidism, unspecified; F32.A Depression, unspecified; F41.9 Anxiety disorder, unspecified; D62 Acute posthemorrhagic anemia
CPT/HCPCS: 80053; 82306; 84443

== ENCOUNTER 2023-03-25 15:15 | Outpatient (REF) | payer OTHER, SELFPAY ==
[2023-03-25 15:38] LABS: Albumin* 4.2 g/dL (3.3-5.0); Basophils Absolute Auto 0.06 K/uL (0.00-0.30); Chloride* 101 mmol/L (96-114); Eosinophils Absolute Auto 0.15 K/uL (0.00-0.50); Eosinophils Percent Auto 2.5 % (0.0-7.0); Hematocrit 40.4 % (33.0-51.0); Hemoglobin* 13.6 gm/dL (12.0-16.0); Immature Granulocytes Abs Auto 0.05 K/uL (0.00-0.30); Immature Granulocytes Pct Auto 0.8 %; Lymphocytes Absolute Auto 1.47 K/uL (0.90-2.90); Lymphocytes Percent Auto 24.8 % (20-44); Mean Corpuscular HGB Conc 34 gm/dL (32-36); Mean Corpuscular Hemoglobin 30 pg (26-34); Mean Corpuscular Volume 90 fL (80-100); Monocytes Percent Auto 9.9 % (0.0-11.0); Neutrophils Absolute Auto 3.61 K/uL (1.7-7.0); Platelet Count* 299 K/uL (140-440); RDW Coefficient of Variation % 12.7 % (11.5-15.5); Red Blood Count 4.51 m/uL (4.00-5.20); White Blood Count* 5.93 K/uL (4.50-11.00)
[2023-03-25 15:39] LABS: Potassium* 4.2 mmol/L (3.6-5.1); Sodium* 138 mmol/L (135-149)
[2023-03-25 15:41] LABS: Aspartate Amino Transferase* 30 U/L (12-35); Bilirubin Total* 0.5 mg/dL (0.1-1.5); Carbon Dioxide* 29 mmol/L (20-32); Creatinine* 0.7 mg/dL (0.5-1.5); Estimated Glomerular Filt Rate 119 ml/min; Total Protein* 6.8 g/dL (6.0-8.3)
[2023-03-25 15:42] LABS: Alanine Aminotransferase* 31 U/L (4-35); Alkaline Phosphatase* 97 U/L (40-150); Blood Urea Nitrogen* 23 mg/dL (5-24); Calcium* 9.2 mg/dL (8.4-10.6); Glucose* 71 mg/dL (60-115)
[2023-03-25 15:51] LABS: Slide Review Reflex No
[2023-03-25 15:58] LABS: Vitamin D 25 Hydroxy* 27 ng/mL (30-80)
== END 2023-03-25 15:16 | disposition home or self-care (01) ==
LOC: NPINS 15:15
PROVIDERS: PCP Family Medicine; Visit Provider Surgery
DX: Z13.29 Encounter for screening for other suspected endocrine disorder (principal); Z13.0 Encounter for screening for diseases of the blood and blood-forming organs and certain disorders involving the immune mechanism; Z13.228 Encounter for screening for other metabolic disorders
CPT/HCPCS: 80053; 82306; 84443; 85025

== ENCOUNTER 2023-05-04 15:42 | Outpatient (CLI) | payer OTHER, SELFPAY ==
--- NOTE | 2023-05-04 16:00 | CRLHL7_ITS ---
For Patients: As a result of the Century Cures Act, medical imaging exams and procedure reports are released immediately into your electronic medical record. You may view this report before your referring provider. If you have questions, please contact your health care provider. INDICATION: Acute pharyngitis. TECHNIQUE: CT soft tissue of the neck was acquired with 98 cc Isovue 370 IV contrast. COMPARISON: None. FINDINGS: Skull base: Unremarkable. Pharynx/Larynx/Trachea: Epiglottis is normal. Airway is patent. Adjacent soft tissues are normal. Salivary glands: Unremarkable. Thyroid gland: Unremarkable. No significant nodules. Lymph nodes: No lymphadenopathy. Vessels: Unremarkable for age. Bones: Unremarkable for age. Misc: No inflammation, mass or fluid collection. Lung apices: Unremarkable. IMPRESSION: Unremarkable soft tissue CT of the neck. No sign of tonsillar or parapharyngeal abscess. Please note that all CT scans at this facility use dose modulation, iterative reconstruction, and/or weight-based dosing when appropriate to reduce radiation dose to as low as reasonably achievable. Dictated by Srinivas Iverson MD @ 05/04/2023 4:28:29 PM (Electronically Signed)
== END 2023-05-04 15:43 | disposition home or self-care (01) ==
LOC: CT 15:43
PROVIDERS: PCP Physician Assistant Medical; Visit Provider Internal Medicine
DX: J02.9 Acute pharyngitis, unspecified (principal)
CPT/HCPCS: 70491; Q9967

== ENCOUNTER 2023-12-07 09:53 | Outpatient (REF) | payer OTHER, SELFPAY ==
[2023-12-07 11:02] LABS: Hemoglobin A1C* 4.9 % (0-5.6)
[2023-12-07 11:29] LABS: Albumin* 4.4 g/dL (3.3-5.0); Chloride* 103 mmol/L (96-114)
[2023-12-07 11:30] LABS: Potassium* 3.9 mmol/L (3.6-5.1); Sodium* 139 mmol/L (135-149)
[2023-12-07 11:32] LABS: Anion Gap 9 mEq/L (7-15); Aspartate Amino Transferase* 33 U/L (12-35); Bilirubin Total* 0.6 mg/dL (0.1-1.5); Carbon Dioxide* 27 mmol/L (20-32); Creatinine* 0.6 mg/dL (0.5-1.5); Estimated Glomerular Filt Rate 122 ml/min
[2023-12-07 11:33] LABS: Alanine Aminotransferase* 26 U/L (4-35); Alkaline Phosphatase* 78 U/L (40-150); Blood Urea Nitrogen* 21 mg/dL (5-24); Calcium* 9.4 mg/dL (8.4-10.6); Glucose* 86 mg/dL (60-115)
[2023-12-07 11:50] LABS: Vitamin D 25 Hydroxy* 88 ng/mL (30-80)
[2023-12-07 12:30] LABS: Vitamin B12* > 1000 pg/mL (243-894)
[2023-12-08 22:24] LABS: Insulin, Fasting 5 uIU/mL (3-25)
[2023-12-10 10:28] LABS: Vitamin B1, Whole Blood 131 nmol/L (70-180)
== END 2023-12-07 09:54 | disposition home or self-care (01) ==
LOC: NPINS 09:53
PROVIDERS: PCP Physician Assistant Medical; Visit Provider Physician Assistant
DX: E66.9 Obesity, unspecified (principal); Z13.29 Encounter for screening for other suspected endocrine disorder; Z13.21 Encounter for screening for nutritional disorder; Z13.228 Encounter for screening for other metabolic disorders; Z13.0 Encounter for screening for diseases of the blood and blood-forming organs and certain disorders involving the immune mechanism
CPT/HCPCS: 80053; 82306; 82607; 83036; 83525; 84425; 84443